=== PATIENT | female | born 1965 | race Caucasian/White ===

== ENCOUNTER 2017-06-27 18:05 | Emergency (ER) | payer SELFPAY ==
[2017-06-27] MEDS: HYDROmorphone 2 MG/ML VIAL IV/SQ ×2 (18:53)
[2017-06-27] MEDS: ONDANSETRON PF 4 MG/2 ML VIAL. IV ×2 (18:53)
[2017-06-27] MEDS: IV NORMAL SALINE 1000ML BAG 1,000 ML IV ×2 (18:53)
[2017-06-27] MEDS: 0.9 % SODIUM CHLORIDE 10 ML DISP.SYRIN. IV ×2 (18:54)
[2017-06-27] MEDS: FAMOTIDINE 20 MG/2 ML VIAL IVP ×2 (18:59)
[2017-06-27 19:00] LABS: ADD MAN DIFF? NO
[2017-06-27 19:02] LABS: BASO % 0 % (0-3); EOS % 0 % (0-3); LYMPH # 3.1 x10^3/uL (1.0-4.8); LYMPH % 32 % (24-48); MEAN CORPUSCULAR HEMOGLOBIN 30 pg (25-35); MEAN CORPUSCULAR HGB CONC 34 g/dL (31-37); MEAN CORPUSCULAR VOLUME 89 fL (79-100); MONO # 0.9 x10^3/uL (0.0-1.1); MONO % 9 % (0-9); NEUT # 5.9 x10^3uL (1.8-7.7); NEUT % 59 % (31-73); PLATELET COUNT 250 x10^3/uL (140-400); RED BLOOD COUNT 4.96 x10^6/uL (3.50-5.40); RED CELL DISTRIBUTION WIDTH 13.7 % (11.5-14.5); WHITE BLOOD COUNT 9.9 x10^3/uL (4.0-11.0)
[2017-06-27] MEDS ORDERED: CONTRAST GIVEN MC ×2 (19:15)
[2017-06-27 19:18] LABS: ANION GAP 11 (6-14); BLOOD UREA NITROGEN 13 mg/dL (7-20); CALCIUM 9.1 mg/dL (8.5-10.1); CARBON DIOXIDE 29 mmol/L (21-32); CHLORIDE 99 mmol/L (98-107); CREATININE 0.7 mg/dL (0.6-1.0); GFR 88.6; GLUCOSE 131 mg/dL (70-99); POTASSIUM 4.1 mmol/L (3.5-5.1); SODIUM 139 mmol/L (136-145)
[2017-06-27 19:25] LABS: ALBUMIN 3.7 g/dL (3.4-5.0); ALK PHOS 96 U/L (46-116); ALT (SGPT) 54 U/L (14-59); AST (SGOT) 37 U/L (15-37); DIRECT BILIRUBIN 0.1 mg/dL (0.0-0.2); LIPASE 101 U/L (73-393); TOTAL BILIRUBIN 0.3 mg/dL (0.2-1.0); TOTAL PROTEIN 8.4 g/dL (6.4-8.2)
[2017-06-27 19:28] LABS: TROPONINI < 0.017 ng/mL (0.000-0.055)
[2017-06-27 19:35] LABS: CKMB MASS < 0.5 ng/mL (0.0-3.6)
[2017-06-27 19:36] LABS: CREATINE KINASE 48 U/L (26-192)
[2017-06-27] MEDS: IOHEXOL 300 MG/ML 100ML VIAL. IV ×2 (19:54)
[2017-06-27 20:55] LABS: BILIRUBIN,URINE NEGATIVE (NEG); CLARITY,URINE CLEAR; COLOR,URINE YELLOW; GLUCOSE,URINE NEGATIVE (NEG); NITRITE,URINE NEGATIVE (NEG); PH,URINE 6.5; PROTEIN,URINE 30 mg/dL (NEG-TRACE)
[2017-06-27 21:11] LABS: BACTERIA,URINE 0 /HPF (0-FEW); RBC,URINE 0 /HPF (0-2); SQUAMOUS EPITHELIAL CELL,UR FEW /LPF; WBC,URINE 0 /HPF (0-4)
== END 2017-06-27 22:11 | disposition home or self-care (01) ==
LOC: ER 18:05
DX: R10.13 Epigastric pain (principal); R11.2 Nausea with vomiting, unspecified; R19.7 Diarrhea, unspecified; R50.9 Fever, unspecified; F12.10 Cannabis abuse, uncomplicated; F41.9 Anxiety disorder, unspecified; Z91.018 Allergy to other foods
CPT/HCPCS: 36415; 51701; 74177; 80048; 80076; 81001; 82553; 83690; 84484; 85025; 86850; 86900; 86901; 93005; 96374; 96375; 99285-25; J1170; J2060; J2405; J7030; Q9967; S0028

== ENCOUNTER 2019-03-21 14:12 | Emergency (ER) | payer SELFPAY ==
[~2019-03-21] VITALS: Ht 162.6 cm; Wt 113.4 kg
[~2019-03-21 14:12] MED LIST: HYDR-2761 PO; ONDA4TAB10 PO; PANT40TA77 PO
[2019-03-21] MEDS ORDERED: HYDROmorphone 2 MG/ML VIAL IV ONE (14:30)
--- NOTE | 2019-03-21 14:37 | PHYS DOC ---
Past Medical History Past Medical History: No Pertinent History Past Surgical History: No Surgical History, Tonsillectomy Smoking: Cigarettes (The patient is a nonsmoker.) Alcohol Use: None Drug Use: Marijuana Adult General Chief Complaint Chief Complaint: PLEURISY HPI HPI Patient is a 53-year-old female who presents to the emergency department for evaluation. She states that over the past week or so, she has developed a left- sided chest wall pain, which radiates across her left chest, from under her left breast, laterally, into her left back. The pain appears to be mostly centered on the skin of her chest, although she states that the pain feels "deeper" as well. The pain is worse with palpation, and movement. She has not experienced similar pain in the past. She denies any fevers or chills. She has developed a nonproductive cough over the past few days. There are no alleviating or exa cerbating factors to her symptoms. The patient's HEART score is a 2.. Review of Systems Review of Systems Constitutional: Denies fever or chills [] Eyes: Denies change in visual acuity, redness, or eye pain [] HENT: Denies nasal congestion or sore throat [] Respiratory: Denies hemoptysis, productive cough or shortness of breath [] Cardiovascular: No additional information not addressed in HPI [] GI: Denies abdominal pain, nausea, vomiting, bloody stools or diarrhea [] : Denies dysuria or hematuria [] Musculoskeletal: Denies back pain or joint pain [] Integument: Denies rash or skin lesions [] Neurologic: Denies headache, focal weakness or sensory changes [] Endocrine: Denies polyuria or polydipsia [] All other systems were reviewed and found to be within normal limits, except as documented in this note. Current Medications Current Medications Current Medications Medications (Trade) Dose Ordered Sig/Florencio Start Time Stop Time Status Last Admin Dose Admin Hydromorphone HCl (Dilaudid) 1 mg 1X ONCE 03/21/19 14:30 03/21/19 14:33 DC 03/21/19 15:34 1 MG Info (CONTRAST GIVEN -- Rx MONITORING) 1 each PRN DAILY PRN 03/21/19 16:00 03/23/19 15:59 Iohexol (Omnipaque 350 Mg/ml) 100 ml 1X ONCE 03/21/19 16:00 11/4/19 16:01 DC 03/21/19 16:14 100 ML Allergies Allergies Allergies Uncoded Allergies Type Severity Reaction Last Updated Verified MALT Allergy Intermediate RASH 06/27/17 Physical Exam Physical Exam PHYSICAL EXAM: CONSTITUTIONAL: Well developed, well nourished HEAD: normocephalic, atraumatic EENT: PERRL, EOMI. Conjunctivae normal color, sclerae non-icteric; moist mucous membranes. NECK: Supple, non-tender; no meningismus. LUNGS: Lungs CTA, breathing even and unlabored. Normal air movement. HEART: Regular rate and rhythm, no murmur CHEST: No deformity; non-tender ABDOMEN: The abdomen is soft, and non-tender, no masses or bruits. EXTREM: Normal ROM; no deformity, no calf tenderness. Normal pulses palpable in all extremities. There is no pedal edema. SKIN: There is a vesicular papular rash on the left posterior back, extending laterally in a dermatomal pattern, along the lateral aspect of the chest, although the rash is nonlinear. There are also a few similar spots on the skin under the left breast. There is diffuse tenderness to palpation of the left breast without palpable mass. Examination was performed in the presence of the patient's nurse, Griselda. There is no other rash; no diaphoresis NEURO: Alert; normal speech and cognition; CN's grossly intact; strength grossly intact without focal deficit. BACK: No CVA TTP. PSYCHIATRIC: The patient exhibits a moderately anxious affect. Current Patient Data Vital Signs Vital Signs Date Time Temp Pulse Resp B/P (MAP) Pulse Ox O2 Delivery O2 Flow Rate FiO2 03/21/19 15:57 18 94 Room Air 03/21/19 15:12 84 139/58 (85) 03/21/19 14:20 98.5 98.5 Lab Values Laboratory Tests Test 03/21/19 14:46 White Blood Count 4.9 x10^3/uL (4.0-11.0) Red Blood Count 4.58 x10^6/uL (3.50-5.40) Hemoglobin 14.0 g/dL (12.0-15.5) Hematocrit 41.3 % (36.0-47.0) Mean Corpuscular Volume 90 fL (79-100) Mean Corpuscular Hemoglobin 31 pg (25-35) Mean Corpuscular Hemoglobin Concent 34 g/dL (31-37) Red Cell Distribution Width 14.1 % (11.5-14.5) Platelet Count 254 x10^3/uL (140-400) Neutrophils (%) (Auto) 47 % (31-73) Lymphocytes (%) (Auto) 38 % (24-48) Monocytes (%) (Auto) 14 % (0-9) H Eosinophils (%) (Auto) 1 % (0-3) Basophils (%) (Auto) 0 % (0-3) Neutrophils # (Auto) 2.3 x10^3/uL (1.8-7.7) Lymphocytes # (Auto) 1.9 x10^3/uL (1.0-4.8) Monocytes # (Auto) 0.7 x10^3/uL (0.0-1.1) Eosinophils # (Auto) 0.0 x10^3/uL (0.0-0.7) Basophils # (Auto) 0.0 x10^3/uL (0.0-0.2) D-Dimer (Becca) 0.75 ug/mlFEU (0.00-0.50) H Sodium Level 141 mmol/L (136-145) Potassium Level 3.6 mmol/L (3.5-5.1) Chloride Level 105 mmol/L (98-107) Carbon Dioxide Level 25 mmol/L (21-32) Anion Gap 11 (6-14) Blood Urea Nitrogen 11 mg/dL (7-20) Creatinine 0.7 mg/dL (0.6-1.0) Estimated GFR (Cockcroft-Gault) 87.9 BUN/Creatinine Ratio 16 (6-20) Glucose Level 92 mg/dL (70-99) Calcium Level 8.9 mg/dL (8.5-10.1) Total Bilirubin 0.3 mg/dL (0.2-1.0) Aspartate Amino Transferase (AST) 32 U/L (15-37) Alanine Aminotransferase (ALT) 50 U/L (14-59) Alkaline Phosphatase 101 U/L (46-116) Troponin I Quantitative < 0.017 ng/mL (0.000-0.055) Total Protein 8.0 g/dL (6.4-8.2) Albumin 3.7 g/dL (3.4-5.0) Albumin/Globulin Ratio 0.9 (1.0-1.7) L Laboratory Tests 03/21/19 14:46 Laboratory Tests 03/21/19 14:46 EKG EKG Normal sinus rhythm with a normal rate, normal axis, normal intervals, there are no acute ischemic ST/T changes.[] Radiology/Procedures Radiology/Procedures PROCEDURE: CHEST PA & LATERAL EXAM: Chest, 2 views. HISTORY: Pain. COMPARISON: None. FINDINGS: 2 views of the chest are obtained. There is linear atelectasis or scarring along the right minor fissure. There is no infiltrate, pleural effusion or pneumothorax. The heart is normal in size. IMPRESSION: Suspected linear atelectasis or scarring along the right minor fissure. No acute pulmonary finding. [] PROCEDURE: CT ANGIOGRAPHY CHEST EXAM: CT angiography of the chest with intravenous contrast. HISTORY: Shortness of breath. Elevated d-dimer. Chest pain. TECHNIQUE: Computed tomographic images of the chest were obtained following the administration of 100 cc Omnipaque 350 intravenous contrast according to angiography protocol. Multiplanar reformatting was performed and 3-dimensional maximum intensity projection images were obtained. *One or more of the following individualized dose reduction techniques were utilized for this examination: 1. Automated exposure control. 2. Adjustment of the mA and/or kV according to patient size. 3. Use of iterative reconstruction technique. COMPARISON: None. FINDINGS: Evaluation for pulmonary embolism is limited due to suboptimal contrast opacification of the distal pulmonary arteries. No central embolism is seen. The heart is normal in size. The aorta is normal in caliber and demonstrates normal branching pattern. There are prominent bilateral hilar lymph nodes. There are calcified granulomas within the subcarinal and left infrahilar location. There is linear atelectasis or scarring within the right middle lobe and lingula. There is no pneumothorax or pleural effusion. There is central bronchial wall thickening. There is slight posterior dependent and basilar atelectasis. There is a 4 mm noncalcified nodule adjacent to calcified granulomas within the medial left lower lobe. There is a 2 mm nodular opacity within the lateral left lower lobe which is likely due to volume averaging of a pulmonary vessel. There is cholelithiasis. There are splenic granulomas. There is no acute finding involving the upper abdomen. There is no suspicious osseous lesion. IMPRESSION: 1. Limited evaluation for pulmonary emboli due to suboptimal contrast opacification of the pulmonary arteries. No central embolism is seen. 2. Bilateral central bronchial wall thickening likely due to bronchitis. No consolidated infiltrate is seen. 3. 4 mm noncalcified nodule within the medial left lower lobe. Follow-up can be performed in one year if there are risk factors for pulmonary neoplasm. 4. Healed granulomatous disease. Course & Med Decision Making Course & Med Decision Making Pertinent Labs and Imaging studies reviewed. (See chart for details) [] 4:50 PM: Patient condition remains stable. She is feeling significantly better at this time. Her exam is consistent with soft tissue pain related to what appears to be a shingles type rash. Clinical suspicion for acute cardiopulmonary cause of her pain is low. Her d-dimer is mildly elevated, CT is nondiagnostic but negative for large pulmonary emboli. I discussed differential diagnosis with the patient. I discussed overnight hospitalization for further evaluation with V/Q scan, but bloodless feel this is not necessary at this time, as the patient is feeling better and have a low suspicion that she actually has a pulmonary embolism. I discussed importance of close follow-up with her PCP, and return precautions were discussed in detail. Dragon Disclaimer Dragon Disclaimer This electronic medical record was generated, in whole or in part, using a voice recognition dictation system. Departure Departure Impression: Primary Impression: Atypical chest pain Additional Impression: Shingles Disposition: 01 HOME, SELF-CARE Condition: STABLE Patient Instructions: Chest Pain (Nonspecific), Shingles Scripts Valacyclovir Hcl (VALTREX) 1,000 Mg Tablet 1 TAB PO TID, #21 TAB Prov: GIOVANA GOMEZ MD 03/21/19 Oxycodone/Apap 5-325 (PERCOCET 5-325 MG TABLET ) 1 Each Tablet 1 TAB PO QIDPRN PRN for PAIN MDD 4 Tablet(s), #15 TAB 0 Refills Prov: GIOVANA GOMEZ MD 03/21/19 Prednisone (PREDNISONE) 20 Mg Tablet 40 MG PO DAILY for 5 Days, #10 TAB Prov: GIOVANA GOMEZ MD 03/21/19 Problem Qualifiers GIOVANA GOMEZ MD Mar 21, 2019 14:37
[2019-03-21 15:05] LABS: BASO % 0 % (0-3); EOS % 1 % (0-3); HEMATOCRIT 41.3 % (36.0-47.0); LYMPH # 1.9 x10^3/uL (1.0-4.8); LYMPH % 38 % (24-48); MEAN CORPUSCULAR HEMOGLOBIN 31 pg (25-35); MEAN CORPUSCULAR HGB CONC 34 g/dL (31-37); MEAN CORPUSCULAR VOLUME 90 fL (79-100); MONO # 0.7 x10^3/uL (0.0-1.1); MONO % 14 % (0-9); NEUT # 2.3 x10^3/uL (1.8-7.7); NEUT % 47 % (31-73); PLATELET COUNT 254 x10^3/uL (140-400); RED BLOOD COUNT 4.58 x10^6/uL (3.50-5.40); RED CELL DISTRIBUTION WIDTH 14.1 % (11.5-14.5); WHITE BLOOD COUNT 4.9 x10^3/uL (4.0-11.0)
--- NOTE | 2019-03-21 15:16 | RAD ---
EXAM: Chest, 2 views. HISTORY: Pain. COMPARISON: None. FINDINGS: 2 views of the chest are obtained. There is linear atelectasis or scarring along the right minor fissure. There is no infiltrate, pleural effusion or pneumothorax. The heart is normal in size. IMPRESSION: Suspected linear atelectasis or scarring along the right minor fissure. No acute pulmonary finding. Electronically signed by: Emily Gonzales MD (03/21/2019 3:12 PM) [place] [id number]
[2019-03-21 15:24] LABS: CALCIUM 8.9 mg/dL (8.5-10.1); CREATININE 0.7 mg/dL (0.6-1.0); GFR 87.9; POTASSIUM 3.6 mmol/L (3.5-5.1)
[2019-03-21 15:30] LABS: ALBUMIN 3.7 g/dL (3.4-5.0); ALBUMIN/GLOBULIN RATIO 0.9 (1.0-1.7); TOTAL BILIRUBIN 0.3 mg/dL (0.2-1.0)
[2019-03-21] MEDS ORDERED: CONTRAST GIVEN. MC PRN (16:00)
[2019-03-21] MEDS ORDERED: IOHEXOL 350 MG/ML 100 ML VIAL. IV ONE (16:00)
--- NOTE | 2019-03-21 16:35 | RAD ---
EXAM: CT angiography of the chest with intravenous contrast. HISTORY: Shortness of breath. Elevated d-dimer. Chest pain. TECHNIQUE: Computed tomographic images of the chest were obtained following the administration of 100 cc Omnipaque 350 intravenous contrast according to angiography protocol. Multiplanar reformatting was performed and 3-dimensional maximum intensity projection images were obtained. *One or more of the following individualized dose reduction techniques were utilized for this examination: 1. Automated exposure control. 2. Adjustment of the mA and/or kV according to patient size. 3. Use of iterative reconstruction technique. COMPARISON: None. FINDINGS: Evaluation for pulmonary embolism is limited due to suboptimal contrast opacification of the distal pulmonary arteries. No central embolism is seen. The heart is normal in size. The aorta is normal in caliber and demonstrates normal branching pattern. There are prominent bilateral hilar lymph nodes. There are calcified granulomas within the subcarinal and left infrahilar location. There is linear atelectasis or scarring within the right middle lobe and lingula. There is no pneumothorax or pleural effusion. There is central bronchial wall thickening. There is slight posterior dependent and basilar atelectasis. There is a 4 mm noncalcified nodule adjacent to calcified granulomas within the medial left lower lobe. There is a 2 mm nodular opacity within the lateral left lower lobe which is likely due to volume averaging of a pulmonary vessel. There is cholelithiasis. There are splenic granulomas. There is no acute finding involving the upper abdomen. There is no suspicious osseous lesion. IMPRESSION: 1. Limited evaluation for pulmonary emboli due to suboptimal contrast opacification of the pulmonary arteries. No central embolism is seen. 2. Bilateral central bronchial wall thickening likely due to bronchitis. No consolidated infiltrate is seen. 3. 4 mm noncalcified nodule within the medial left lower lobe. Follow-up can be performed in one year if there are risk factors for pulmonary neoplasm. 4. Healed granulomatous disease. Fleischner Society recommendations (Radiology 2017): SOLID NODULES Solitary solid nodule <6 mm - low-risk patient: no routine follow-up required - high-risk patient: optional CT at 12 months (particularly with suspicious nodule morphology and/or upper lobe location) Solitary solid nodule 6-8 mm - low-risk patient: CT at 6-12 months, then consider CT at 18-24 months - high risk patient: CT at 6-12 months, then if persistent CT at 18-24 months Solitary solid nodule >8 mm - consider CT at 3 months, PET/CT, or tissue sampling Multiple solid nodules <6 mm - low-risk patient: no routine follow-up required - high-risk patient: optional CT at 12 months Multiple solid nodules >6 mm - low-risk patient: CT at 3-6 months, then consider CT at 18-24 months - high risk patient: CT at 3-6 months, then if persistent CT at 18-24 months SUBSOLID NODULES Solitary ground glass nodule <6 mm - no routine follow-up required Solitary ground glass nodule > or = 6 mm - CT at 6-12 months, then if persistent CT every 2 years until 5 years Solitary part solid nodule > or = 6mm - CT at 3-4 months, the if persistent and solid component remains <6 mm, annual CT until 5 years Multiple subsolid nodules <6 mm - CT at 3-6 months, then if stable consider CT at 2 and 4 years in high risk patients Multiple subsolid nodules > or = 6 mm - CT at 3-6 months, then subsequent management based on the most suspicious nodule(s) Electronically signed by: Emily Gonzales MD (03/21/2019 4:31 PM) [place] [id number]
[2019-03-21] MEDS ORDERED: PRED20TA PO (16:56)
[2019-03-21] MEDS ORDERED: OXYC1TAB15 PO (16:56)
[2019-03-21] MEDS ORDERED: VALA10005 PO (16:56)
[2019-03-21 17:21] VITALS: BP 129/73
--- NOTE | 2019-03-22 07:33 | EKG ---
[facility] [address] [place] [address] Test Date: 2019-03-21 Test Time: 14:31:19 Pat Name: MARY MARINA Department: Room: Gender: F Occupational Therapy Manager: : 1965 Requested By: GIOVANA GOMEZ Order Number: [id number] Reading MD: Measurements Intervals [place] Rate: 86 P: 53 OR: 148 QRS: 62 QRSD: 90 T: 46 QT: 352 QTc: 424 Interpretive Statements SINUS RHYTHM NORMAL ECG No previous ECG available for comparison
== END 2019-03-21 17:36 | disposition home or self-care (01) ==
LOC: ER 14:12
DX: R07.89 Other chest pain (principal); B02.9 Zoster without complications; Z91.018 Allergy to other foods
CPT/HCPCS: 36415; 71046; 71275; 80053; 84484; 85025; 85379; 93005; 96374; 99285; J1170; Q9967